=== PATIENT | female | born 1990 | race Caucasian/White ===

== ENCOUNTER 2017-11-08 19:07 | Emergency (ER) | END 2017-11-08 22:09 | disposition home or self-care (01) ==

== ENCOUNTER 2017-11-13 13:38 | Emergency (ER) | END 2017-11-13 18:16 | disposition home or self-care (01) ==

== ENCOUNTER 2018-01-20 08:44 | Outpatient (CLI) | END 2018-01-20 15:45 | disposition home or self-care (01) ==

== ENCOUNTER 2018-03-28 21:58 | Inpatient (IN) | END 2018-03-31 13:25 | disposition home or self-care (01) | DRG 807 ==